=== PATIENT | female | born 1985 | race Caucasian/White ===

== ENCOUNTER 2021-08-19 14:23 | Outpatient (RCR) | payer OTHER, SELFPAY ==
[2021-08-19 15:25] VITALS: BP 125/79; PULSE 89
== END 2021-08-30 09:23 | disposition home or self-care (01) ==
LOC: ANHOBOP 14:23
PROVIDERS: Visit Provider Obstetrics & Gynecology
DX: O41.03X0 Oligohydramnios, third trimester, not applicable or unspecified (principal); Z3A.38 38 weeks gestation of pregnancy
CPT/HCPCS: 59025

== ENCOUNTER 2021-08-20 02:03 | Inpatient (IN) | payer OTHER, SELFPAY ==
--- NOTE | 2021-08-08 14:09 | PC.NURSE ---
VERIFIED WITH OR SCHEDULE AND PATIENT --C/S ON 08/28/21 AT 1200 PATIENT GIVEN REQUISITION FOR LAB DRAWN ON 08/27/21
[2021-08-20] VITALS (70 sets, daily range): BP systolic 75–153; BP diastolic 35–118; PULSE 57–132; RESP 12–21; TEMP 36.1–36.6; O2SAT 93–99; BMI 35.9
[2021-08-20] MEDS: LACTATED RINGERS 1,000 ML 125 ML IV CONT ×3 (03:04→06:57)
[2021-08-20] MEDS: fentaNYL CITRATE INJ (*CRX) 100 MCG/2 ML VIAL 50 MCG IV PUSH (03:04)
[2021-08-20 03:14] LABS: Basophils Percent Auto 0.3 % (0.2-1.2); Eosinophils Absolute Auto 0.4 K/mm3 (0-0.3); Eosinophils Percent Auto 3.1 % (0-4.4); Hematocrit 36.3 % (37.0-47.0); Immature Granulocyte Absolute 0.07 K/mm3 (0.00-0.031); Immature Granulocyte Percent A 0.6 % (0-0.5); Mean Corpuscular HGB Conc 33.1 g/dl (32-36); Mean Corpuscular Hemoglobin 30.5 pg (26-34); Mean Corpuscular Volume 92.1 fl (80-100); Mean Platelet Volume 10.7 fl (7.4-10.4); Monocytes Percent Auto 8.4 % (2.6-8.5); Neutrophils Absolute Auto 8.1 K/mm3 (1.3-6.7); Neutrophils Percent Auto 67.6 % (45.5-73.1); Platelet Count Result 234 k/mm3 (150-375); Red Blood Count 3.94 M/mm3 (4.2-5.4)
[2021-08-20] MEDS: AMPICILLIN 2 GM/NS 100 ML 2 GM/100 ML BAG IVPB (03:29)
[2021-08-20] MEDS: fentaNYL CITRATE INJ (*CRX) 100 MCG/2 ML VIAL IV PUSH (04:21)
--- NOTE | 2021-08-20 07:00 | PM.IMHP ---
H&P: HPI History of Present Illness Date/Time: 08/20/21 07:00 Chief Complaint: SROM Narrative: 36 yo [id number] who presents with SROM. Her is complicated by prior for breech. She desires repeat . Pt also has hypothyroidism on syntrhoid, lupus not on meds, and asthma. Review of Systems Cardiovascular: Cardiovascular: Denies chest pain, Denies leg edema, Denies palpitations, Denies dyspnea and Denies dyspnea on exertion Respiratory: Respiratory: Denies cough, Denies dyspnea and Denies dyspnea on exertion Gastrointestinal: Gastrointestinal: Denies abdominal pain, Denies constipation, Denies diarrhea, Denies nausea and Denies vomiting Genitourinary: Genitourinary: Denies hematuria, Denies urinary frequency, Denies dysuria, Denies pelvic pain, Denies urinary incontinence and Denies vaginal discharge Neurologic: Reports system reviewed and no additional complaints, except as documented Psychiatric: Psychiatric: Reports no additional psychiatric complaints Endocrine: Endocrine: Denies palpitations [facility] Family History Family History (Updated 08/08/21 @ 13:49 by Leticia Sanchez RN) Sibling Lupus Social History Social History Smoking status: Never smoker Second hand tobacco smoke exposure: No Alcohol intake: current Substance use: never Spiritual care concerns: No Meds Home Medications and Allergies Home Medications Medication Instructions Recorded Confirmed Type ascorbate calcium (vitamin C) 500 500 mg PO DAILY 08/08/21 08/08/21 History mg tablet levothyroxine 50 mcg tablet 50 mcg PO DAILY 08/08/21 08/08/21 History liothyronine 5 mcg tablet 5 mcg PO DAILY 08/08/21 08/08/21 History magnesium 500 mg tablet 1,000 mg PO 08/08/21 History potassium chloride 20 mEq oral 10 meq PO DAILY 08/08/21 08/08/21 History packet prenat.vits,santi,[id number] 1 tablet PO DAILY 08/08/21 08/08/21 History selenium 50 mcg tablet 60 mcg PO DAILY 08/08/21 08/08/21 History Allergies Allergy/AdvReac Type Severity Reaction Status Date / Time sulfamethoxazole Allergy Mild RASH Verified 08/20/21 03:22 sulfite Allergy Mild Anaphylactic Verified 08/08/21 13:34 Shock trimethoprim Allergy Mild RASH Verified 08/20/21 03:22 Sulfa (Sulfonamide Allergy Unknown Rash Verified 08/08/21 13:34 Antibiotics) ciprofloxacin AdvReac Mild Nausea and Verified 10/15/16 13:42 Vomiting APPLES Allergy Severe Anaphylactic Uncoded 08/12/12 14:31 Shock CIPROFLOXACIN HCL AdvReac Mild Nausea and Uncoded 10/15/16 13:42 Vomiting Vital Signs Vital Signs - 24 hr 08/20/21 03:03 08/20/21 03:16 08/20/21 03:46 Pulse Rate 71 69 65 Blood Pressure 112/64 108/60 115/68 Oxygen Delivery 08/20/21 04:01 08/20/21 04:16 08/20/21 04:32 Pulse Rate 79 76 62 Blood Pressure 118/79 126/87 111/68 Oxygen Delivery 08/20/21 04:46 08/20/21 05:01 08/20/21 05:16 Pulse Rate 65 65 68 Blood Pressure 107/69 112/67 118/65 Oxygen Delivery 08/20/21 05:31 08/20/21 05:46 08/20/21 06:01 Pulse Rate 68 69 67 Blood Pressure 116/69 108/84 117/75 Oxygen Delivery 08/20/21 06:16 08/20/21 06:31 08/20/21 06:46 Pulse Rate 68 67 67 Blood Pressure 110/65 116/72 112/74 Oxygen Delivery 08/20/21 06:45 Pulse Rate Blood Pressure Oxygen Delivery Room Air Exam Const: General: no acute distress Eyes: EOM: EOMs intact bilaterally Neck: Neck: supple Thyroid: thyroid normal Chest: Breast/axilla inspection: normal inspection of the breasts Breast/axilla palpation: normal palpation of the breasts, normal palpation of the axillae and no axillary lymphadenopathy Resp: Effort & Inspection: normal respiratory effort Auscultation: clear to auscultation bilaterally Cardio: Rate: regular rate Rhythm: regular rhythm GI: Inspection: non-distended and other (Gravid) GI Palp: Yes Soft to palpation, No Tenderness to palpation present (GI) and No Guarding due to palpation present
--- NOTE | 2021-08-20 07:06 | WPDHPUPDATE1 ---
History and Physical Update Update Date/Time: 08/20/21 07:06 History and Physical has been reviewed, including an updated exam of the patient. There are NO changes in the patient's condition. Risks, benefits, and alternatives have been discussed and questions answered. Patient agrees to proceed with procedure.
--- NOTE | 2021-08-20 07:11 | LDADM ---
This patient, Amisha Wolff, was admitted to Labor/Delivery/Recovery 120 on 08/20/21 at 02:03. Plans for labor, pain management and were discussed with patient. Patient/family oriented to hospital policies and general routines including ID bracelet, bed and alarms, visiting hours, pain management, procedures, bathroom and other care routines, personal items, smoking policy, room service/diet and guest tray routines, infant security routines, and visiting hours. Patient/Family are encouraged to report perceived risks to care and to ask questions if they do not understand what they are told or what they should do. See OBIX for further documentation.
--- NOTE | 2021-08-20 07:14 | WPDANESEPPF ---
Anes - Initial Pre Proc Eval Procedure: Operation Date: 08/20/21 07:30 Proposed Procedures p Repeat Section - To Guzman MD Date/Time: 08/20/21 07:14 Surgeon: To Guzman MD Pre Op Diagnosis: R/O Labor Patient Data Age: 36 Gender: F Height: 1.63 m Weight: 95 kg Last Vital Signs Pulse 71 08/20/21 07:01 BP 121/70 08/20/21 07:01 O2 Del Method Room Air 08/20/21 06:45 Allergies Allergy/AdvReac Type Severity Reaction Status Date / Time sulfamethoxazole Allergy Mild RASH Verified 08/20/21 03:22 sulfite Allergy Mild Anaphylactic Verified 08/08/21 13:34 Shock trimethoprim Allergy Mild RASH Verified 08/20/21 03:22 Sulfa (Sulfonamide Allergy Unknown Rash Verified 08/08/21 13:34 Antibiotics) ciprofloxacin AdvReac Mild Nausea and Verified 10/15/16 13:42 Vomiting APPLES Allergy Severe Anaphylactic Uncoded 08/12/12 14:31 Shock CIPROFLOXACIN HCL AdvReac Mild Nausea and Uncoded 10/15/16 13:42 Vomiting Home Medications Medication Instructions Recorded Confirmed Type ascorbate calcium (vitamin C) 500 500 mg PO DAILY 08/08/21 08/08/21 History mg tablet levothyroxine 50 mcg tablet 50 mcg PO DAILY 08/08/21 08/08/21 History liothyronine 5 mcg tablet 5 mcg PO DAILY 08/08/21 08/08/21 History magnesium 500 mg tablet 1,000 mg PO 08/08/21 History potassium chloride 20 mEq oral 10 meq PO DAILY 08/08/21 08/08/21 History packet prenat.vits,santi,[id number] 1 tablet PO DAILY 08/08/21 08/08/21 History selenium 50 mcg tablet 60 mcg PO DAILY 08/08/21 08/08/21 History Laboratory Tests 08/20/21 08/20/21 08/20/21 03:05 03:05 03:05 WBC 12.0 K/mm3 H K/mm3 (4.5-10.0) RBC 3.94 M/mm3 L M/mm3 (4.2-5.4) Hgb 12.0 g/dL g/dL (12.0-15.0) Hct 36.3 % L % (37.0-47.0) MCV 92.1 fl fl (80-100) MCH 30.5 pg pg (26-34) MCHC 33.1 g/dl g/dl (32-36) RDW 13.0 % % (11.5-14.5) Plt Count 234 k/mm3 k/mm3 (150-375) MPV 10.7 fl H fl (7.4-10.4) Immature Gran % (Auto) 0.6 % H % (0-0.5) Neut % (Auto) 67.6 % % (45.5-73.1) Lymph % (Auto) 20.0 % % (18.3-44.2) Dyer % (Auto) 8.4 % % (2.6-8.5) Eos % (Auto) 3.1 % % (0-4.4) Baso % (Auto) 0.3 % % (0.2-1.2) Lymph # (Auto) 2.40 K/mm3 K/mm3 (0.9-3.2) Dyer # (Auto) 1.0 K/mm3 H K/mm3 (0.1-0.6) Eos # (Auto) 0.4 K/mm3 H K/mm3 (0-0.3) Baso # (Auto) 0.0 K/mm3 K/mm3 (0.0-0.1) Abs Immat Gran (auto) 0.07 K/mm3 H K/mm3 (0.00-0.031) Absolute Neuts (auto) 8.1 K/mm3 H K/mm3 (1.3-6.7) Absolute Nucleated RBC 0.0 K/mm3 K/mm3 (0.0-0.012) Nucleated RBC % 0.0 % % (0.0-0.2) RPR Pending Blood Type A Positive Antibody Screen Negative Patient hx anesthesia problems: post op nausea/vomiting Family hx anesthesia problems: none Results Review: All pre-operative results and documents have been reviewed as part of the pre-operative evaluation. [facility] Past Medical History Medical History (Updated 08/20/21 @ 07:14 by Xavi Fleming MD) Asthma during Hypothyroidism affecting Systemic lupus complicating Family History Family History Sibling Lupus Social History Social History Smoking status: Never smoker Second hand tobacco smoke exposure: No Alcohol intake: current Substance use: never Spiritual care concerns: No Anes - Eval Final PreProcedure Day of Procedure 08/20/21 07:14 Patient weight: obese Heart: regular rate and rhythm Lungs: clear to auscultation Airway: Mallampati scale class II Neurological: alert and oriented Last oral intake: >/= 8 hours ASA classification: III
[2021-08-20] MEDS: ceFAZolin 2 GM/D5W 50 ML 2 GM/50 ML BAG IVPB (07:31)
--- NOTE | 2021-08-20 08:31 | W.PM.PROC2 ---
Procedure Note - Detailed Date of Procedure 08/20/21 Pre-op Diagnosis intrauterine at term SROM prior x1 Post-op Diagnosis Same Procedure Performed low transverse section Surgeon Ramesh Castle MD Anesthesia Spinal and Epidural Description of Procedure The patient was taken to the operating room. A combined spinal epidural anesthesic was administered and found to be adequate at a t-10 level. The patient was placed in a supine position with a slight left lateral tilt. A garcia catheter was placed with return of clear urine. A Bovie grounding pad was placed. Surgical prep was performed and surgical drapes were placed. A surgical time out was performed. A Pfannenstiel skin incision was then made with the scalpel and carried through to the underlying layer of fascia. The fascia was then incised in the midline and the incision was extended laterally with the Tovar scissors. The superior aspect of the fascia was then grasped with the Koffi clamps, elevated, and the underlying rectus muscles dissected off bluntly and sharply. Attention was then turned to the inferior aspect of this incision which, in a similar fashion, was grasped, tented up with the Koffi clamps, and the rectus muscles dissected off both bluntly and sharply. The rectus muscles were then in the midline. The peritoneum was identified and entered bluntly. The peritoneal incision was then extended superiorly and inferiorly with good visualization of the bladder. The vesico-uterine serosa was identified and dissected to create a bladder flap. The bladder blade was reinserted. The uterus was inspected for rotation. A low-transverse uterine incision was made sharply with the scalpel and entry was made into the uterine cavity. An amniotomy was made and copious amounts of clear fluid were noted on return. The uterine incision was extended laterally bluntly. The bladder blade was removed and the fetus was delivered atraumatically. The nose and mouth were suctioned with a bulb syringe. The umbilical cord was clamped twice and cut. The infant was handed off to the waiting staff. At the time of the delivery, the had good color, tone and grimace. The cried with minimal stimulation. A second segment of umbilical cord was clamped and cut for cord blood gasses. Cord blood was collected for determination of the blood type and for direct Leonardo. The placenta was delivered spontaneously without difficulty. The placenta appeared grossly normal and complete. The uterus was exteriorized and cleared of all clots and debris. The uterine incision was repaired using 0-monocryl suture in a running fashion. A second layer of 0 Monocryl suture was used in an imbricating fashion to obtain excellent hemostasis and uterine strength. The uterine closure was inspected for hemostasis. The posterior aspect of the uterus and the broad ligaments were inspected and the posterior cul-de-sac cleared of fluid and blood clots. The uterine closure was again inspected and found to be hemostatic. The uterus was returned to the abdominal cavity. The pericolic gutters were inspected and were cleared of all blood clots and debris. The uterine closure was then re inspected to ensure hemostasis as were all subfascial tissues. The peritoneum was closed using 3-0 vicryl in a running fashion. The fascia was reapproximated with 0-vicryl in a running fashion. The subcutaneous tissue was irrigated and hemostasis achieved with electrocautery. It was reapproximated with 3-0 vicryl in a running fashion. The skin was closed with 4-0 vicryl in a subcuticular fashion. A sterile dressing was applied to the wound. The patient tolerated the procedure well. Sponge, lap and needle counts were correct times three. The patient was taken to recovery in stable condition and without anticipated complications. Estimated Blood Loss 165 Drains No Packing No Pathology None sent Complications No immediate c
[2021-08-20] MEDS: SCOPOLAMINE 1.5 MG PATCH TRANSDERM (08:42)
[2021-08-20] MEDS: OXYTOCIN 30 UNITS/NS 500 ML 30 UNITS/500 ML BAG 125 UNITS IV CONT (09:14)
[2021-08-20 10:28] LABS: Rapid Plasma Reagin Non-Reactive (NonReactive)
[2021-08-20] MEDS: HYDROcodone/acetaminophen (*CRX) 10-325 MG TABLET 1 TAB PO ×3 (12:37→22:30)
[2021-08-20] MEDS: DEXTROSE 5%/0.45% SOD CHL 1,000 ML 125 ML IV CONT (13:36)
[2021-08-20] MEDS: DOCUSATE SODIUM 100 MG CAPSULE PO (16:09)
[2021-08-20] MEDS: SIMETHICONE 80 MG TAB.CHEW PO (16:09)
[2021-08-20] MEDS: LIOTHYRONINE SODIUM 5 MCG TABLET PO (16:18)
--- NOTE | 2021-08-20 16:35 | PC.NURSE ---
1625 - Introductions were made and mother verbalizes she is able to independently latch with appropriate positioning/alignment. She denies any nipple discomfort and is responsively . is currently meeting outcomes for weight, output, jaundice and feeding frequencies of 8-12 times in 24 hours. Mother is encouraged to call for assistance if her infant doesn?t latch or there is discomfort with latching. Mother voiced understanding of information shared and mom and baby guide reviewed for additional resource information . Reported to the primary RN.
[2021-08-20] MEDS: KETOROLAC 30 MG/ML VIAL (*BKC) IV PUSH (17:18)
[2021-08-21] VITALS: BP 99/54; PULSE 62; RESP 18; TEMP 36.6
[2021-08-21] MEDS: LORATADINE 10 MG TABLET PO (00:30)
[2021-08-21 03:45] VITALS: BP 104/58; PULSE 67; RESP 18; TEMP 36.6
[2021-08-21] MEDS: HYDROcodone/acetaminophen (*CRX) 10-325 MG TABLET 1 TAB PO ×6 (03:45→22:35)
[2021-08-21] MEDS: IBUPROFEN 600 MG TABLET PO ×4 (03:46→22:35)
[2021-08-21] MEDS: SIMETHICONE 80 MG TAB.CHEW PO ×3 (03:46→16:08)
[2021-08-21] MEDS: LIOTHYRONINE SODIUM 5 MCG TABLET PO (05:56)
[2021-08-21] MEDS: LEVOTHYROXINE SODIUM 50 MCG TABLET PO (05:57)
[2021-08-21 06:03] LABS: Basophils Percent Auto 0.3 % (0.2-1.2); Eosinophils Absolute Auto 0.3 K/mm3 (0-0.3); Hemoglobin 10.5 g/dL (12.0-15.0); Immature Granulocyte Absolute 0.04 K/mm3 (0.00-0.031); Immature Granulocyte Percent A 0.3 % (0-0.5); Lymphocytes Absolute Auto 2.55 K/mm3 (0.9-3.2); Mean Corpuscular HGB Conc 31.8 g/dl (32-36); Mean Corpuscular Hemoglobin 30.4 pg (26-34); Mean Corpuscular Volume 95.7 fl (80-100); Monocytes Absolute Auto 1.2 K/mm3 (0.1-0.6); Monocytes Percent Auto 9.5 % (2.6-8.5); Neutrophils Absolute Auto 8.7 K/mm3 (1.3-6.7); Neutrophils Percent Auto 67.9 % (45.5-73.1); Platelet Count Result 190 k/mm3 (150-375); Red Blood Count 3.45 M/mm3 (4.2-5.4); Red Cell Distribution Width 13.2 % (11.5-14.5); White Blood Count 12.8 K/mm3 (4.5-10.0)
[2021-08-21 08:15] VITALS: BP 100/55; PULSE 65; RESP 18; TEMP 36.6; O2SAT 100
--- NOTE | 2021-08-21 09:59 | P.PNAN_ITS ---
Radhas-Prog Note L&D Date/Time: 08/21/21 09:59 Comfortable throughout: section Neuraxial method: spinal Epidural/Spinal procedure site: clean & non-tender Neuro status: Neuro function grossly intact. Cardiovascular status: normal Respiratory status: normal Airway patency: baseline Vital Signs: Last Vital Signs Temp 36.6 C 08/21/21 03:45 Pulse 67 08/21/21 03:45 Resp 18 08/21/21 03:45 BP 104/58 L 08/21/21 03:45 Pulse Ox 99 08/20/21 16:30 O2 Del Method Room Air 08/21/21 04:00 Pain score (VAS): 2 I/O: Intake & Output 08/20/21 08/21/21 08/21/21 23:59 07:59 15:59 Intake Total 1967 1999 Output Total 185 1700 Balance 118 300 Patient feedback: Patient satisfied with anesthetic care.
--- NOTE | 2021-08-21 10:00 | WPDANLDNPN2 ---
Anes-Prog Note L&D-Neuraxial Date/Time: 08/21/21 10:00 Neuraxial medications: intrathecal PF morphine Opiod-related complaints: none Patient feedback: Patient satisfied with post-operative pain management.
[2021-08-21] MEDS: DOCUSATE SODIUM 100 MG CAPSULE PO ×2 (10:43→16:08)
[2021-08-21] MEDS: MULTIVIT/MIN/PREN/FOL AC/IRON TABLET 1 TAB PO (10:43)
--- NOTE | 2021-08-21 11:59 | PM.OBPNVD ---
OB - PN: Subj Subjective Date/time seen: 08/21/21 11:59 Narrative: Pain OK. Tolerating diet. OB - PN: Obj Data Labs CBC & Chem 7: 08/21/21 03:50 Labs: Laboratory Results - last 24 hr 08/21/21 03:50 WBC 12.8 H RBC 3.45 L Hgb 10.5 L Hct 33.0 L MCV 95.7 MCH 30.4 MCHC 31.8 L RDW 13.2 Plt Count 190 MPV 11.0 H Immature Gran % (Auto) 0.3 Neut % (Auto) 67.9 Lymph % (Auto) 20.0 [place] % (Auto) 9.5 H Eos % (Auto) 2.0 Baso % (Auto) 0.3 Lymph # (Auto) 2.55 [place] # (Auto) 1.2 H Eos # (Auto) 0.3 Baso # (Auto) 0.0 Abs Immat Gran (auto) 0.04 H Absolute Neuts (auto) 8.7 H Absolute Nucleated RBC 0.0 Nucleated RBC % 0.0 OB - PN A/P Assessment and Plan (1) delivery delivered: Code(s): O82 - Encounter for delivery without indication Status: Acute Assessment and Plan: A: POD#1 s/p repeat LTCS. Doing well. P: Routine care. Plan Comments: A: POD#1, doing well. P: Routine care. Review of Systems Review of Systems: All systems reviewed & are unremarkable except as noted in HPI and below Exam Narrative: AVSS I/O OK ABD soft, nontender, fundus firm. Incision c/d/i. EXT nontender
[2021-08-21 16:22] VITALS: BP 103/58; PULSE 61; RESP 16; TEMP 36.3; O2SAT 97
[2021-08-21 19:00] VITALS: BP 104/58; PULSE 60; RESP 18; TEMP 36.7
[2021-08-22] MEDS: HYDROcodone/acetaminophen (*CRX) 10-325 MG TABLET 1 TAB PO ×4 (02:30→17:06)
[2021-08-22] MEDS: LEVOTHYROXINE SODIUM 50 MCG TABLET PO (05:34)
[2021-08-22] MEDS: IBUPROFEN 600 MG TABLET PO ×3 (05:34→23:31)
[2021-08-22] MEDS: LIOTHYRONINE SODIUM 5 MCG TABLET PO (05:34)
[2021-08-22 07:20] VITALS: BP 96/56; PULSE 60; RESP 18; TEMP 36.9; O2SAT 98
[2021-08-22 08:00] VITALS: PULSE 60; RESP 18; O2SAT 98
[2021-08-22] MEDS: DOCUSATE SODIUM 100 MG CAPSULE PO ×2 (10:50→17:06)
[2021-08-22] MEDS: MULTIVIT/MIN/PREN/FOL AC/IRON TABLET 1 TAB PO (10:50)
--- NOTE | 2021-08-22 14:30 | PM.OBPNVD ---
OB - PN: Subj Subjective Date/time seen: 08/22/21 14:30 Narrative: Pain OK. Tolerating diet. OB - PN: Obj Data Labs CBC & Chem 7: 08/21/21 03:50 OB - PN A/P Plan Comments: A: POD#2, doing well. P: Routine care. Exam Narrative: AVSS I/O OK ABD soft, nontender, fundus firm. Incision c/d/i. EXT nontender
--- NOTE | 2021-08-22 15:03 | PC.NURSE ---
[id number] Mother verbalizes she is able to independently latch with appropriate positioning/alignment. She denies any nipple discomfort and is responsively . Infant is currently meeting outcomes for weight, output, jaundice and feeding frequencies of 8-12 times in 24 hours. Mother demonstrates an effective latch to the right breast using cross cradle. demonstrates good suck/swallow ratios. Mother plans to pump. Discussed the risks and benefits of pumping, usage, cleaning and care of pump. Mother is feeding appropriately for growth of and understands stimulating infant to eat if needed. has had appropriate feedings in the last 24 hours meets the outcomes for weight, output and jaundice at this time. Mother states she is confident to continue effectively and pumping for human milk to feed her infant at home or when to call for assistance and denies any additional assistance or education at this time. Reinforced understanding of milk production, transition of milk, signs of adequate intake, prevention/relief of engorgement, responsive after visualizing feeding cues, the different methods of stimulating infant to breastfeed 2-3 hours after the start of the last feeding, community resources, medication information reviewed per [employer] and when to call a provider using the resource of the mom and baby guide/[facility] website. Mother voiced understanding of the education shared.
[2021-08-22 19:10] VITALS: BP 111/59; PULSE 63; RESP 18; TEMP 36.8
[2021-08-22] MEDS: ACETAMINOPHEN 325 MG TABLET 650 MG PO (19:10)
[2021-08-22] MEDS: HYDROcodone/acetaminophen (*CRX) 5-325 MG TABLET 1 TAB PO ×2 (19:57→23:31)
[2021-08-23] MEDS: HYDROcodone/acetaminophen (*CRX) 10-325 MG TABLET 1 TAB PO ×2 (05:01→12:22)
[2021-08-23] MEDS: LIOTHYRONINE SODIUM 5 MCG TABLET PO (05:01)
[2021-08-23] MEDS: LEVOTHYROXINE SODIUM 50 MCG TABLET PO (05:01)
[2021-08-23] MEDS: SIMETHICONE 80 MG TAB.CHEW PO (07:56)
[2021-08-23] MEDS: IBUPROFEN 600 MG TABLET PO (07:56)
[2021-08-23] MEDS: MULTIVIT/MIN/PREN/FOL AC/IRON TABLET 1 TAB PO (07:56)
[2021-08-23 07:57] VITALS: BP 119/78; PULSE 64; RESP 16; TEMP 35.7; O2SAT 99
[2021-08-23] MEDS: HYDROcodone/acetaminophen (*CRX) 5-325 MG TABLET 1 TAB PO (07:57)
--- NOTE | 2021-08-23 11:26 | PM.OBPNVD ---
OB - PN: Subj Subjective Date/time seen: 08/23/21 11:26 Narrative: Pain OK. Tolerating diet. Would like to go home. OB - PN: Obj Data Labs CBC & Chem 7: 08/21/21 03:50 OB - PN A/P Plan Comments: A: POD#3, doing well. P: Home to f/u 4 weeks. Time Spent With Patient Time: Total time spent is greater than 50% in coordination of care (as documented) at patient's floor/unit and/or counseling patient: Exam Narrative: AVSS ABD soft, nontender, fundus firm. Incision c/d/i. EXT nontender
--- NOTE | 2021-08-23 11:27 | P.DS_ITS ---
DS: Admitting Diagnosis Discharge Date 08/23/21 Admitting Diagnosis IUP at term SROM/Labor Prior DS: Discharge Diagnosis Discharge Diagnosis (1) delivery delivered: Code(s): O82 - Encounter for delivery without indication Status: Acute OB - DS: Summary OB Procedures : NST OB Procedures Intrapartum: OB Procedures: : None Peripartum Data Procedures: Procedures Operation Date: 08/20/21 07:30 Actual Procedure Side Surgeon p Repeat Section Bilateral To Guzman MD Time Spent with Patient Time attestation: Total time spent providing and/or coordinating discharge services: Discharge Plan Discharge Attending physician on discharge: To Guzman Discharging Clinician: To Guzman Patient Disposition: Home, Self-Care Activity: may shower and pelvic rest Diet: regular Discharge Instructions: Call or return if temperature above 100.4? F, increased abdominal pain, increased vaginal bleeding or any new problems. Stand Alone Forms: General Discharge Information Follow-up/Referrals: To Guzman MD [Physician] - 4 Weeks Discharge Medications: New ibuprofen 600 mg tablet 600 mg PO Q6H PRN (Reason: cramps) Qty: 30 0RF hydrocodone-acetaminophen 5-325 mg tablet 1 - 2 tablet PO Q6H PRN (Reason: pain) Qty: 30 0RF Continued magnesium 500 mg Tablet 1,000 mg PO liothyronine 5 mcg Tablet 5 mcg PO DAILY levothyroxine 50 mcg Tablet 50 mcg PO DAILY #2 Tablet 1 tablet PO DAILY selenium 50 mcg Tablet 60 mcg PO DAILY potassium chloride [K+ Potassium] 20 mEq Packet 10 meq PO DAILY ascorbate calcium (vitamin C) [Buffered Vitamin C] 500 mg Tablet 500 mg PO DAILY Date of admission: 08/20/21 02:03 Primary Care Provider: PHYSICIAN,MOTION PICTURE NARRATOR Admitting Provider: To Guzman Attending physician on admission: To Guzman Condition: Stable
--- NOTE | 2021-08-23 13:20 | PC.NURSE ---
1000 Patient viewed the discharge video Mother & Baby Care, The First Two Weeks . Patient was given the opportunity and encouraged to ask questions. Patient verbalized understanding of information shared and has been given the mother/baby guide for home reference.
[2021-08-25 11:26] VITALS: BP 120/79; PULSE 66; RESP 16; TEMP 37.4; O2SAT 99
== END 2021-08-23 13:04 | disposition home or self-care (01) | DRG 788 ==
LOC: ANHLDR 02:32 → ANHOB2 13:15
PROVIDERS: Admitting Provider Student in an Organized Health Care Education/Training Program; Visit Provider Obstetrics & Gynecology
PROC: (CPT 59514; principal; 2021-08-21 12:00)
DX: O34.219 Maternal care for unspecified type scar from previous cesarean delivery (principal); O99.284 Endocrine, nutritional and metabolic diseases complicating childbirth; E03.9 Hypothyroidism, unspecified; O99.824 Streptococcus B carrier state complicating childbirth; Z3A.37 37 weeks gestation of pregnancy; Z37.0 Single live birth; O99.892 Other specified diseases and conditions complicating childbirth; M32.9 Systemic lupus erythematosus, unspecified; O99.52 Diseases of the respiratory system complicating childbirth; J45.909 Unspecified asthma, uncomplicated
CPT/HCPCS: 36415; 84112; 85025; 86592; 86850; 86900; 86901; A9270; J0131; J0290; J0690; J1100; J1885; J2274; J2370; J2405; J2590; J3010; J7120

== ENCOUNTER 2021-09-25 15:56 | Outpatient (CLI) | payer OTHER, SELFPAY ==
--- NOTE | ~2021-09-25 | US_ITS ---
US breast BI complete 09/25/2021 16:39 Indication: Mastitis. Patient on antibiotics for 5 days. Erythema. Breast pain. Procedure: High-resolution bilateral complete breast ultrasound including all 4 quadrants in the suba reolar locations. Comparison: No prior studies for comparison. Findings: Right breast: In the area of erythema of the right breast at 3:00 there is a heterogeneous area of de creased echogenicity consistent with phlegmonous change. No discrete walled off fluid collection to s uggest drainable abscess. The area of abnormality measures approximately 4.2 x 1.9 x 1.5 cm. Left breast: Heterogeneous echotexture without focal solid or cystic mass. No discrete walled off flu id collection to suggest abscess. Impression: 1: Complex hypoechoic area of the right breast at 3:00 in the area of erythema, consistent with phleg monous change. No discrete walled off fluid collection to suggest abscess. Recommend follow-up ultras ound as clinically indicated. BI-RADS CATEGORY 2 - BENIGN FINDINGS Reviewed, dictated and finalized at location A. Impression: 1: Complex hypoechoic area of the right breast at 3:00 in the area of erythema, consistent with phlegmonous change. No discrete walled off fluid collection to suggest abscess. Recommend follow-up ultrasound as clinically indicated. BI-RADS CATEGORY 2 - BENIGN FINDINGS
== END 2021-09-25 15:57 | disposition home or self-care (01) ==
PROVIDERS: Visit Provider Obstetrics & Gynecology
DX: N64.4 Mastodynia (principal); N63.15 Unspecified lump in the right breast, overlapping quadrants
CPT/HCPCS: 76641

== ENCOUNTER 2023-03-29 13:49 | Outpatient (CLI) | payer OTHER, SELFPAY ==
--- NOTE | ~2023-03-29 | US_ITS ---
EXAMINATION: US pelvic complete w TV DATE: 03/29/2023 14:10 INDICATION: Menorrhagia TECHNIQUE: Multiple transabdominal and endovaginal sonographic images of the pelvis were obtained. COMPARISON: None. FINDINGS: The uterus measures 7.4 x 3.9 x 4.6 cm. The endometrial complex measures 6 mm in thickness. There is a 6 x 4 x 7 mm small anechoic cystic lesion along the margin of the endometrial complex at the uteri ne fundus. 8 x 7 x 6 mm hypoechoic fibroid anterior to the endometrial canal of the uterine fundus. T he right ovary measures 3.3 x 2.2 x 2.6 cm. The left ovary measures 2.7 x 1.8 x 1.8 cm. There are 3 s mall anechoic cysts/follicles at the left ovary the largest measuring 1 cm in maximal diameter. Vascu lar flow identified in both ovaries on color Doppler. There is no free fluid in the pelvis. IMPRESSION: 1. 8 mm hypoechoic fibroid at the uterine fundus. 2. 7 x 6 x 4 mm anechoic cystic lesion along the margins of the endometrial complex at uterine fundus which could represent a subendometrial cyst or potentially a gestational sac in the appropriate clin ical setting. Correlate with beta-hCG level. Reviewed, dictated and finalized at location A. RTING CONSULTANT IMPRESSION: 1. 8 mm hypoechoic fibroid at the uterine fundus. 2. 7 x 6 x 4 mm anechoic cystic lesion along the margins of the endometrial com plex at uterine fundus which could represent a subendometrial cyst or potential ly a gestational sac in the appropriate clinical setting. Correlate with beta-h CG level.
== END 2023-03-29 13:50 ==
LOC: MICIMG 13:50
PROVIDERS: PCP Obstetrics & Gynecology; Visit Provider Obstetrics & Gynecology
DX: N92.1 Excessive and frequent menstruation with irregular cycle (principal)
CPT/HCPCS: 76830; 76856

== ENCOUNTER 2023-04-16 09:18 | Outpatient (CLI) | payer OTHER, SELFPAY ==
--- NOTE | ~2023-04-16 | MMUS_ITS ---
EXAMINATION: MM diag beau implant BI w [place], US breast BI complete HISTORY: Lumpy breasts by clinical examination. TECHNIQUE: Additional 3-D tomosynthesis images of the breasts were performed and synthetic 2-D images were generated. CAD analysis was submitted and interpreted. High resolution bilateral complete breas t ultrasound was performed. COMPARISON: No prior studies for comparison. BREAST PARENCHYMAL COMPOSITION: Not dense: There are scattered areas of fibroglandular density. FINDINGS: MAMMOGRAPHIC FINDINGS: There are no suspicious masses, calcifications or architectural distortion in either breast to sugges t malignancy. ULTRASOUND: Complete bilateral US of all 4 quadrants of the breasts and retroareolar region was reviewed. In the right breast at 1:00, 5 cm from the nipple, there is a 3 mm cyst. At 1:00, 4 cm from the nipple there is a 2 mm cyst. At 9:00, 2 cm from the nipple there is a cluster of microcysts measuring 3 mm. No estrada spicious masses in either breast to suggest malignancy. IMPRESSION: 1. No evidence for malignancy in either breast. Benign findings. 2. Routine yearly screening mammogram and regular clinical breast examination are recommended. BI-RADS Category 2: Benign finding(s). Reviewed, dictated and finalized at location A. MIC INTERPRETER IMPRESSION: 1. No evidence for malignancy in either breast. Benign findings. 2. Routine yearly screening mammogram and regular clinical breast examination a re recommended. BI-RADS Category 2: Benign finding(s).
== END 2023-04-16 09:19 ==
PROVIDERS: PCP Obstetrics & Gynecology; Visit Provider Obstetrics & Gynecology
DX: R92.8 Other abnormal and inconclusive findings on diagnostic imaging of breast (principal)
CPT/HCPCS: 76641; 77062; 77066; G0279